=== PATIENT | male | born 1975 | race Caucasian/White ===

== ENCOUNTER 2023-07-01 11:07 | Outpatient (AMB) | payer OTHER, SELFPAY ==
--- NOTE | 2023-07-01 11:13 | MHC.OFFWIV ---
Intake Vital Signs 07/01/23 11:17 Height 5 ft 8 in Weight 198 lb BMI 30.1 BP 116/72 Blood Pressure Location Lt brachial Position Sitting Pulse 88 Pulse Source Pulse Oximeter Pulse Oximetry (%) 97 Oxygen Delivery Method Room Air Intake Visit Reasons: EP Work Clearance Patient Tobacco Use Status: Never used Tobacco Allergies No Known Allergies Allergy (Verified 07/01/23 11:37) Medication List - Last Reconciled 07/01/23 by Leonard Ferrer MD polymyxin B sulf-trimethoprim 10,000 unit- 1 mg/mL mL ophthalmic (eye) Do you need a note to return to daycare/school/sports/work: Yes HPI EP Work Clearance HPI Details 48-year-old male presents to the office for a sick visit. 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 Patient injured his left eye on the weekend and was diagnosed with a corneal abrasion. He needs a note for clearance to go back to work. His symptoms have resolved. He has normal vision. [facility] Social History Patient Tobacco Use Status: Never used Tobacco Physical Exam Vital Signs: Last Vital Signs Pulse 88 07/01/23 11:17 BP 116/72 07/01/23 11:17 Pulse Ox 97 07/01/23 11:17 Oxygen Delivery Method Room Air 07/01/23 11:17 BMI result Body Mass Index 30.1 Eyes General: appearance normal, both eyes and all related structures Eyelids: Yes eyelids normal Conjunctivae: conjunctivae normal Sclerae: sclerae normal Corneas: corneas normal and fluorescein used (No uptake.) Assessment & Plan Assessment & Plan (1) Corneal abrasion, left: Code(s): S05.02XA - Injury of conjunctiva and corneal abrasion without foreign body, left eye, initial encounter Plan: Symptoms have resolved. Patient can return to work with no restrictios.n Coding Level of Care Code New Pt Level 3 (38583) Diagnoses Corneal abrasion, left S05.02XA
[2023-07-01 11:17] VITALS: BP 116/72; PULSE 88; O2SAT 97; BMI 30.1
== END 2023-07-01 12:39 | disposition home or self-care (01) ==
PROVIDERS: PCP Hospitalist; Visit Provider Internal Medicine
DX: S05.02XA Injury of conjunctiva and corneal abrasion without foreign body, left eye, initial encounter (principal)
CPT/HCPCS: 99203

== ENCOUNTER 2023-10-31 10:02 | Outpatient (AMB) | payer OTHER, SELFPAY ==
--- NOTE | 2023-10-31 10:08 | MHC.PC.OV ---
Vital Signs 10/31/23 10:09 Height 5 ft 7 in Weight 189 lb BMI 29.6 BP 114/66 Blood Pressure Location Lt brachial Position Sitting Respiration 13 Pulse 71 Pulse Source Pulse Oximeter Pulse Oximetry (%) 98 Oxygen Delivery Method Room Air Intake Visit Reasons: Re-Establish Care ( Request PE) Intake Note: Patient is here to re-establish care. Patient would like to request lab orders as his fiance has noticed a recent rapid weight loss. Patient would also like to discuss difficulty concentrating. [employer] [employer] Required: No Accompanied by: Self / Same As Patient Allergies No Known Allergies Allergy (Verified 10/31/23 10:16) Tobacco use date assessed: 10/31/23 Dental Screening Dental Screen Date: 10/31/23 Did you have a dental visit in the last 12 months?: No Did you have a dental problem in the last 6 months where you did not have access to dental care?: No Was dental information given to patient?: Yes HPI Re-Establish Care ( Request PE) HPI Details New patient Prior PCP:? [facility] Last office visit/CPE: > 1 yr Acute issue(s): C/o difficulty concentrating PMHx: Asthma, h/o opiod abuse. SurgHx: None FHx: Mom: DM, CHF. Dad: Muscular Dystropy, Lymp CA. SocHx: Smoker down to 1.5 ppw. . EtOH Rarely . MJ No drugs currently PFSH Medical History (Updated 10/31/23 @ 11:21 by Baudilio Krishnamurthy) History of drug abuse Surgical History (Updated 10/31/23 @ 10:27 by Lorna Gonzalez CMA) No pertinent past surgical history Family History (Updated 10/31/23 @ 10:31 by Lorna Gonzalez CMA) Mother Hypertension Diabetes Father Cancer Brother Cancer Other Drug abuse and dependence Social History (Updated 10/31/23 @ 10:22 by Lorna Gonzalez CMA) Household Members: Spouse and Children Housing: House 75 years or older and lives alone: No Alcohol intake: never Patient Tobacco Use Status: Current everyday Tobacco user Cigarette Packs Per Day: 0.5 Cigarettes Per Day: 10 e-Cigarette/Vaping Use: Currently Using Frequency of e-Cigarette/Vaping Use: Marijuana Use of substances other than those prescribed or required for medical reasons: Yes Substance Use Type: Marijuana Have you been hit, kicked, punched, or otherwise hurt by someone within the past year? If so, by whom?: No Do you feel safe in your current relationship?: Yes Is there a partner from a previous relationship who is making you feel unsafe now?: No Are you made to feel afraid or neglected: No service: No Current occupational status: employed Current occupation: [employer] Current occupational exposures/hazards: No Sexual orientation: Unable to collect Gender identity: Unable to collect Cognitive needs: No Hearing needs: No Vision needs: No Questionnaire PHQ-9 Over the last 2 weeks, how often have you been bothered by any of the following problems? 1. Little interest or pleasure in doing things: not at all 2. Feeling down, depressed, or hopeless: not at all 3. Trouble falling or staying asleep, or sleeping too much: nearly every day 4. Feeling tired or having little energy: not at all 5. Poor appetite or overeating: not at all 6. Feeling bad about yourself - or that you are a failure or have let yourself or your family down: not at all 7. Trouble concentrating on things, such as reading the newspaper or watching television: nearly every day 8. Moving or speaking so slowly that other people could have noticed. Or the opposite - being so fidgety or restless that you have been moving around a lot more than usual: not at all 9. Thoughts that you would be better off or of hurting yourself in some way: not at all Total score: 6 Depression Screening Interpretation: Positive Depression Screening Done: Yes 64242 - PHQ-9 Billing: Yes Source: Developed by Drs. Leoncio Suárez, Jenna Hines, Seb España and colleagues, with an educational karla from [employer]. Thrive Questionnaire Date Thrive assessed: 10/31/23 I am a: Patient What is your living situation today?: I have a steady place to live Within the past 12 months, did the food you bought not last and you didn't have the money to get more?: Never true Within the past 12 months, did you worry whether your food would run out before you got money to buy more?: Never true Do you have trouble paying for medicines?: No Do you have trouble getting transportation to medical appointments?: No Do you have trouble paying your heating and electricity bill?: No Do you have trouble taking care of your child, family member or friend?: No Do you have trouble with day-to-day activities such as bathing, preparing meals, shopping, managing finances, etc.?: No Are you currently unemployed and looking for a job?: No Are you interested in more education?: No Please select the resources that you would like help with: None Currently or been in a relationship where the following occur: no concerns reported AUDIT C Alcohol Use Questionnaire (AUDIT-C) 1. How often do you have a drink containing alcohol?: Never 3. How often do you have six or more drinks on one occasion?: Never Total Score: 0 CORDELL-7 AMB Questionnaire CORDELL-7 Date CORDELL - 7 assessed: 10/31/23 Feeling nervous, anxious, or on edge: 0 = Not at all Not being able to stop or control worryin = Not at all Worrying too much about different things: 1 = Several days Trouble relaxin = Several days Being so restless that it is hard to sit still: 3 = Nearly every day Becoming easily annoyed or irritable: 1 = Several days Feeling afraid as if something awful might happen: 0 = Not at all Total CORDELL-7 score (0-4 normal; 5-9 mild; 10-14 moderate; 15-21 severe): 6 Source: Developed by Drs. Leoncio Suárez, Jenna Hines, Seb España and colleagues, with an educational karla from [employer]. CORDELL-7 Assessment Billing CORDELL-7 Assessment Tool: CORDELL-7 Assessment 67280 Review of Systems Const Denies chills, Denies fatigue, Denies fever(s), Denies headache(s) and Denies weakness ENT Denies dizziness and Denies headache(s) Card Denies chest pain, Denies lightheadedness, Denies dyspnea and Denies other (Palpitations) Resp Denies cough, Denies dyspnea, Denies wheezing and Denies other ( shortness of breath) Musc Denies numbness and Denies tingling Neuro Denies dizziness, Denies headache(s), Denies numbness, Denies tingling, Denies paresthesias and Denies weakness Psych Denies anxiety and Denies depression Endo Denies fatigue Aller/Immun Denies wheezing Physical exam (Primary Care) Vital Signs: Last Vital Signs Pulse 71 10/31/23 10:09 Resp 13 10/31/23 10:09 BP 114/66 10/31/23 10:09 Pulse Ox 98 10/31/23 10:09 Oxygen Delivery Method Room Air 10/31/23 10:09 BMI result Body Mass Index 29.6 Tobacco/Smoking Status: Tobacco use Status Tobacco use date assessed 10/31/23 10/31/23 10:20 Patient Tobacco Use Status Current everyday Tobacco 10/31/23 10:22 e-Cigarette/Vaping Use Currently Using 10/31/23 10:22 PHQ-9: PHQ-9 Score PHQ-9: Total score 6 10/31/23 10:56 Depression Screening Interpretation: Positive Thrive Assessment: Date of Thrive Assessment Date Thrive assessed 10/31/23 10/31/23 10:25 Currently or been in a relationship where the following occur: no concerns reported Const General: no acute distress and well developed Nutritional Appearance: well nourished Orientation/consciousness: patient oriented x3 HENMT Head: Yes normocephalic and Yes atraumatic Eyes General: appearance normal, both eyes and all related structures Pupils: Equal, round and reactive pupils present EOM: EOMs intact bilaterally Resp Effort & Inspection: normal respiratory effort Auscultation: clear to auscultation bilaterally Cardio Rate: regular rate Rhythm: regular rhythm Heart sounds: S1 normal heart sound present, S2 normal heart sound present, no gallops, no murmurs and no rubs Neuro General: patient oriented x3 and gait normal Cranial nerves: Yes Equal, round and reactive pupils present Psych Affect: normal affect Assessment and Plan Assessment & Plan (1) Difficulty concentrating: Code(s): R41.840 - Attention and concentration deficit Plan: Patient?states?that?he?had?a?distant?history?of?diagnosis?of?ADHD?as?a?child. Will?refer?him?to?neuropsych?for?evaluation Briefly?discussed?bupropion?as?a?medication?that?could?help?with?concentration (2) Smoker: Code(s): F17.200 - Nicotine dependence, unspecified, uncomplicated Plan: Patient?is?actively?working?on?weaning?down?and?using?nicotine?gum Encouraged?him?to?keep?working?towards?cessation (3) Asthma: Code(s): J45.909 - Unspecified asthma, uncomplicated Plan: As?above,?work?towards?cessation?of?smoking Also?briefly?discussed?bupropion?and?patient?will?think?about Will?give?him?an?albuterol?inhaler?p.r.n. (4) Weight loss: Code(s): R63.4 - Abnormal weight loss Plan: Patient?has?had?a?drastic?change?in?his?lifestyle/work Will?check?labs?but?this?is?likely?normal?weight?loss (5) Laboratory exam ordered as part of routine general medical examination: Code(s): Z00.00 - Encounter for general adult medical examination without abnormal findings Plan: Check?lab Orders: Orders Comprehensive [place]. Panel Fast Today Z00.00 - Encounter for general adult medical examination without abnormal findings Lipid Panel Today Z00.00 - Encounter for general adult medical examination without abnormal findings TSH reflex Free T4 Today Z00.00 - Encounter for general adult medical examination without abnormal findings UA and rflx microscopic Today Z00.00 - Encounter for general adult medical examination without abnormal findings Microalbumin, Random (w Creat) Today I10 - Essential (primary) hypertension Prostate Specific Antigen Scr Today Z12.5 - Encounter for screening for malignant neoplasm of prostate Complete Blood Count Auto Diff Today Z00.00 - Encounter for general adult medical examination without abnormal findings Referrals Neuropsychiatry Referral R41.840 - Attention and concentration deficit Medications: New albuterol sulfate 90 mcg/actuation (ProAir HFA) 2 puffs inhalation Q4-6H PRN 8.5 grams 0RF shortness of breath or wheezing 30 days Coding Level of Care Code New Pt Level 3 (18095) Diagnoses Difficulty concentrating R41.840 Smoker F17.200 Asthma J45.909 Weight loss R63.4 Laboratory exam ordered as part of routine general medical examination Z00.00 Additional Codes CORDELL-7 Assessment Billing - CORDELL-7 Assessment Tool: CORDELL-7 Assessment 33876 ([id number])
[2023-10-31 10:09] VITALS: BP 114/66; PULSE 71; RESP 13; O2SAT 98; BMI 29.6
== END 2023-10-31 11:30 | disposition home or self-care (01) ==
PROVIDERS: PCP Hospitalist; Visit Provider Family Medicine
DX: R41.840 Attention and concentration deficit (principal); F17.210 Nicotine dependence, cigarettes, uncomplicated; J45.909 Unspecified asthma, uncomplicated; R63.4 Abnormal weight loss
CPT/HCPCS: 99213

== ENCOUNTER 2024-02-09 10:17 | Outpatient (AMB) | payer OTHER, SELFPAY ==
[2024-02-09 11:01] VITALS: BP 120/80; PULSE 64; O2SAT 99; BMI 29.0
--- NOTE | 2024-02-09 11:01 | A.OFFPC_ITS ---
Vital Signs 02/09/24 11:01 Height 5 ft 7 in Weight 185 lb 6 oz BMI 29.0 BP 120/80 Blood Pressure Location Lt brachial Position Sitting Pulse 64 Pulse Source Pulse Oximeter Pulse Oximetry (%) 99 Oxygen Delivery Method Room Air Intake Visit Reasons: CPE with f/u labs and health maint. Intake Note: Patient is here for physical today. Allergies No Known Allergies Allergy (Verified 02/09/24 11:02) Tobacco use date assessed: 02/09/24 Dental Screening Dental Screen Date: 02/09/24 Did you have a dental visit in the last 12 months?: No Did you have a dental problem in the last 6 months where you did not have access to dental care?: No Was dental information given to patient?: Patient declined HPI CPE with f/u labs and health maint. HPI Details 48 y/o male presents for a CPE with f/u labs and health maintenance. No recent labs to review. Had complaints of difficulty concentrating and referred to neuropsychiatry. Pt notes he tries to continue to quit smoking but this has been difficult due to stress from work. [facility] Medical History History of drug abuse Surgical History No pertinent past surgical history Family History Mother Hypertension Diabetes Father Cancer Brother Cancer Other Drug abuse and dependence Social History Household Members: Spouse and Children Housing: House 75 years or older and lives alone: No Alcohol intake: never Patient Tobacco Use Status: Current everyday Tobacco user Cigarette Packs Per Day: 0.5 Cigarettes Per Day: 10 e-Cigarette/Vaping Use: Currently Using Substance Use Type: Marijuana service: No Current occupational status: employed Current occupation: [employer] Current occupational exposures/hazards: No Sexual orientation: Unable to collect Gender identity: Unable to collect Cognitive needs: No Hearing needs: No Vision needs: No Questionnaire PHQ-9 Over the last 2 weeks, how often have you been bothered by any of the following problems? 1. Little interest or pleasure in doing things: not at all 2. Feeling down, depressed, or hopeless: not at all 3. Trouble falling or staying asleep, or sleeping too much: not at all 4. Feeling tired or having little energy: not at all 5. Poor appetite or overeating: not at all 6. Feeling bad about yourself - or that you are a failure or have let yourself or your family down: not at all 7. Trouble concentrating on things, such as reading the newspaper or watching television: not at all 8. Moving or speaking so slowly that other people could have noticed. Or the opposite - being so fidgety or restless that you have been moving around a lot more than usual: not at all 9. Thoughts that you would be better off or of hurting yourself in some way: not at all Total score: 0 Depression Screening Interpretation: Negative Depression Screening Done: Yes 22263 - PHQ-9 Billing: Yes Source: Developed by Drs. Leoncio Suárez, Jenna Hines, Seb España and colleagues, with an educational karla from [employer]. Thrive Questionnaire Date Thrive assessed: 02/09/24 I am a: Patient What is your living situation today?: I have a steady place to live Within the past 12 months, did the food you bought not last and you didn't have the money to get more?: Never true Within the past 12 months, did you worry whether your food would run out before you got money to buy more?: Never true Do you have trouble paying for medicines?: No Do you have trouble getting transportation to medical appointments?: No Do you have trouble paying your heating and electricity bill?: No Do you have trouble taking care of your child, family member or friend?: No Do you have trouble with day-to-day activities such as bathing, preparing meals, shopping, managing finances, etc.?: No Are you currently unemployed and looking for a job?: No Are you interested in more education?: No THRIVE Score: 0 AUDIT C Alcohol Use Questionnaire (AUDIT-C) 1. How often do you have a drink containing alcohol?: Monthly or less 2. How many drinks containing alcohol do you have on a typical day when you are drinking?: 1 or 2 3. How often do you have six or more drinks on one occasion?: Never Total Score: 1 CORDELL-7 AMB Questionnaire CORDELL-7 Date CORDELL - 7 assessed: 02/09/24 Feeling nervous, anxious, or on edge: 0 = Not at all Not being able to stop or control worryin = Not at all Worrying too much about different things: 0 = Not at all Trouble relaxin = Not at all Being so restless that it is hard to sit still: 0 = Not at all Becoming easily annoyed or irritable: 0 = Not at all Feeling afraid as if something awful might happen: 0 = Not at all Total CORDELL-7 score (0-4 normal; 5-9 mild; 10-14 moderate; 15-21 severe): 0 Source: Developed by Drs. Leoncio Suárez, Jenna Hines, Seb España and colleagues, with an educational karla from [employer]. CORDELL-7 Assessment Billing CORDELL-7 Assessment Tool: CORDELL-7 Assessment 60112 Review of Systems Const Denies chills, Denies fatigue, Denies fever(s), Denies headache(s) and Denies weakness Eyes Denies change in vision ENT Denies dizziness, Denies headache(s), Denies hearing loss, Denies nasal congestion, Denies sinus pain, Denies sinus pressure and Denies sore throat Card Denies chest pain, Denies lightheadedness, Denies dyspnea and Denies other (palpitations) Resp Denies cough, Denies dyspnea and Denies wheezing GI Denies abdominal pain, Denies melena, Denies hematochezia, Denies change in bowel habits, Denies dyspepsia and Denies nausea Denies hematuria and Denies dysuria Musc Denies abnormal gait, Denies myalgias, Denies arthralgias, Denies numbness and Denies tingling Skin/Breast Denies rash, Denies unusual bruising and Denies wounds Neuro Denies abnormal gait, Denies dizziness, Denies headache(s), Denies memory loss, Denies numbness, Denies Sensory deficit (Neuro), Denies tingling and Denies weakness Psych Denies anxiety, Denies depression and Denies memory loss Endo Denies cold intolerance, Denies fatigue, Denies heat intolerance, Denies polydipsia and Denies polyuria Abhijeet/Lymph Denies easy bleeding and Denies easy bruising Aller/Immun Denies wheezing Physical exam (Primary Care) Vital Signs: Last Vital Signs Pulse 64 02/09/24 11:01 BP 120/80 02/09/24 11:01 Pulse Ox 99 02/09/24 11:01 Oxygen Delivery Method Room Air 02/09/24 11:01 BMI result Body Mass Index 29.0 Tobacco/Smoking Status: Tobacco use Status Tobacco use date assessed 02/09/24 02/09/24 11:08 Patient Tobacco Use Status Current everyday Tobacco 02/09/24 11:08 e-Cigarette/Vaping Use Currently Using 02/09/24 11:08 PHQ-9: PHQ-9 Score PHQ-9: Total score 0 02/09/24 11:51 Depression Screening Interpretation: Negative Thrive Assessment: Date of Thrive Assessment Date Thrive assessed 02/09/24 02/09/24 11:08 Const General: no acute distress, well developed, alert and awake Nutritional Appearance: well nourished Orientation/consciousness: patient oriented x3 HENMT Head: Yes normocephalic and Yes atraumatic Ears: hearing grossly normal bilaterally and TM's normal bilaterally General nose exam: Normal external nose present and Normal nares present Mouth: Normal oral and palatal mucosa present and moist mucous membranes Teeth and gingiva: dentition normal Throat: Yes posterior oropharynx normal Eyes General: appearance normal, both eyes and all related structures Pupils: Equal, round and reactive pupils present and Pupil accommodation reflex normal EOM: EOMs intact bilaterally Neck Neck: Yes normal visual inspection, Yes no lymphadenopathy and Yes trachea midline Thyroid: Thyroid normal Carotids: no bruits Lymphatic: no lymphadenopathy noted Chest Chest palpation & inspection: normal inspection of the chest Resp Effort & Inspection: normal respiratory effort Auscultation: clear to auscultation bilaterally Cardio Rate: regular rate Rhythm: regular rhythm Heart sounds: S1 normal heart sound present, S2 normal heart sound present, no gallops, no murmurs and no rubs Bruits: no abdominal aortic bruits and no carotid bruits GI Palpation (GI): No Abdominal aortic bruit present, Soft to palpation, nontender, No hepatosplenomegaly present and No Rebound tenderness present Auscultation: normal bowel sounds General: Yes no CVA tenderness Back/Spine/Pelvis Back: no CVA tenderness Cervical Spine: cervical ROM normal and No Cervical spine tenderness Thoracic/Lumbar Spine: thoraco-lumbar ROM normal, No pain with thoraco-lumbar ROM, No thoracic spinal tenderness and No lumbar spinal tenderness Skin Lesions: no lesions Rashes: no rashes Trauma: no lacerations or abrasions Wounds: no wounds Nails: normal Neuro General: patient oriented x3 Cranial nerves: Yes Equal, round and reactive pupils present Cognition (Neuro): normal cognition Gait exam (Neuro): Normal gait present Motor exam (neuro): 5/5 motor strength present throughout Sensory Exam: No Sensory deficit (Neuro) Deep tendon reflexes (DTR's): Right patellar reflex intensity grade: 2+ and Left patellar reflex intensity grade: 2+ Extrem Other: Foreign body/lump at 3rd MCP joint, R hand General: Yes normal to inspection and No edema Psych Appearance: grossly normal Affect: normal affect Attitude: cooperative Thought process: Normal thought process present Assessment and Plan Assessment & Plan (1) Adult general medical exam: Code(s): Z00.00 - Encounter for general adult medical examination without abnormal findings Plan: 48-year-old?male?presents?for?complete?physical?exam Exam?today?within?normal?limits EKG: ?Sinus?bradycardia, HR?56?beats?per?minute. ?Otherwise?normal?EKG Encouraged?healthy?diet?and?exercise (2) Difficulty concentrating: Code(s): R41.840 - Attention and concentration deficit Plan: Had?referred?him?to?neuropsych Stable (3) Right hand pain: Code(s): M79.641 - Pain in right hand Plan: Foreign?body/lump?at?3rd?MCP?joint Check?x-ray Will?call?patient?of?action?is?required (4) Forearm tendonitis: Code(s): M77.8 - Other enthesopathies, not elsewhere classified Plan: Left?forearm?tendinitis Relative?rest, ice Can?use?a?forearm?brace He?will?let?me?know?if?not?improved (5) Smoker: Code(s): F17.200 - Nicotine dependence, unspecified, uncomplicated Plan: Trial?bupropion Continue?nicotine?gum (6) Screening for prostate cancer: Code(s): Z12.5 - Encounter for screening for malignant neoplasm of prostate Plan: Check?PSA (7) Screening for colon cancer: Code(s): Z12.11 - Encounter for screening for malignant neoplasm of colon Orders: Orders XR hand RT min 3V Today M79.641 - Pain in right hand AMB EKG-In Office Today Z00.00 - Encounter for general adult medical examination without abnormal findings Referrals Gastroenterology Referral Z12.11 - Encounter for screening for malignant neoplasm of colon Medications: New bupropion HCl 75 mg PO DAILY 30 days 30 tabs 1RF Patient Instructions: Refer?to?Gastroenterology Coding Level of Care Code Est Pt Level 3 (71136) Est Pt Prev Care 40-64y(99208) Diagnoses Adult general medical exam Z00.00 Difficulty concentrating R41.840 Right hand pain M79.641 Forearm tendonitis M77.8 Smoker F17.200 Screening for prostate cancer Z12.5 Screening for colon cancer Z12.11 Additional Codes CORDELL-7 Assessment Billing - CORDELL-7 Assessment Tool: CORDELL-7 Assessment 34666 ([id number])
== END 2024-02-09 12:32 | disposition home or self-care (01) ==
PROVIDERS: PCP Family Medicine; Visit Provider Family Medicine
DX: Z00.00 Encounter for general adult medical examination without abnormal findings (principal); R41.840 Attention and concentration deficit; M79.641 Pain in right hand; M77.8 Other enthesopathies, not elsewhere classified; F17.200 Nicotine dependence, unspecified, uncomplicated; Z12.5 Encounter for screening for malignant neoplasm of prostate; Z12.11 Encounter for screening for malignant neoplasm of colon
CPT/HCPCS: 99213; 99396

== ENCOUNTER 2024-02-09 12:16 | Outpatient (REF) | payer OTHER, SELFPAY ==
[2024-02-09 14:30] LABS: MANUAL DIFF FLAG NO
[2024-02-09 14:39] LABS: Basophils Absolute Auto 0.1 X10*3/uL (0.0-0.2); Basophils Percent Auto 1.2 % (0-2); Eosinophils Absolute Auto 0.1 X10*3/uL (0.0-0.4); Hematocrit 45.4 % (42.0-52.0); Imm Gran Abs Auto 0.02 X10*3/uL (0.00-0.03); Imm Gran Pct Auto 0.4 % (0.0-0.4); Lymphocytes Absolute Auto 2.1 X10*3/uL (1.2-4.9); Lymphocytes Percent Auto 40.4 % (20-40); Mean Corpuscular Hemoglobin 29.8 pg (27.0-33.0); Mean Corpuscular Volume 90.3 fL (80.0-98.0); Mean Platelet Volume 9.8 fL (9.4-12.4); Monocytes Absolute Auto 0.5 X10*3/uL (0.1-1.2); Monocytes Percent Auto 10.2 % (2-11); Neutrophils Absolute Auto 2.4 x10*3/uL (2.0-8.3); Neutrophils Percent Auto 45.8 % (45-73); Platelet Count 269 X10*3/uL (160-400); Red Blood Count 5.03 X10*6/uL (4.60-5.80); Red Cell Distribution Width 12.9 % (11.0-16.0); White Blood Count 5.1 X10*3/uL (4.8-10.8)
[2024-02-09 15:00] LABS: Alanine Aminotransferase 22 U/L (0-40); Albumin Level 3.9 g/dL (3.5-5.0); Alkaline Phosphatase 64 U/L (39-117); Anion Gap 8 (12-20); Aspartate Amino Transferase 19 U/L (5-37); Bilirubin Total 0.4 mg/dL (0.0-1.0); Blood Urea Nitrogen 13 mg/dL (9-16); Calcium 9.2 mg/dL (8.4-10.2); Carbon Dioxide 32 mmol/L (22-29); Chloride 104 mmol/L (96-108); Cholesterol 209 mg/dL (<200); Estimated Glomerular Filt Rate > 60; Glucose Fasting 90 mg/dL (60-99); HDL Cholesterol 45 mg/dL (>40); LDL Cholesterol Calculated 133 mg/dL (<100); Potassium 4.4 mmol/L (3.3-5.1); Sodium 140 mmol/L (135-145); Total Protein 6.8 g/dL (6.5-8.0); Triglycerides 158 mg/dL (<150)
[2024-02-09 15:11] LABS: Prostate Specific Antigen Scr 0.37 ng/mL (<0.05-4.0)
[2024-02-09 15:17] LABS: TSH reflex Free T4 0.86 uIU/mL (0.32-4.0)
[2024-02-09 15:53] LABS: Appearance Urine Clear; Color Urine Yellow; Glucose Urine UA Negative (Negative); Leukocyte Esterase Urine Negative (Negative); Nitrite Urine Negative (Negative); Urine Blood Negative (Negative); Urine Ketones Negative (Negative); Urine Protein Negative (Neg-Trace)
[2024-02-09 16:34] LABS: Creatinine Urine 128.03 mg/dL; Microalbum/Creatinine Ratio Ur 4.6 ug/mg cr (<30)
== END 2024-02-09 12:17 | disposition home or self-care (01) ==
LOC: HO.WFDLDS 12:16
PROVIDERS: Visit Provider Family Medicine
DX: Z00.00 Encounter for general adult medical examination without abnormal findings (principal); Z12.5 Encounter for screening for malignant neoplasm of prostate; I10 Essential (primary) hypertension
CPT/HCPCS: 36415; 80053; 80061; 81003; 82043; 82570; 84153; 84443; 85025

== ENCOUNTER → 2024-03-11 14:28 | Outpatient (AMB) | payer OTHER, SELFPAY ==
--- NOTE | 2024-03-11 14:22 | MHC.PC.OV ---
Intake Visit Reasons: follow up cpe lab Intake Note: Patient share he has no concerns at this time Respiratory Care Assistant Required: No Accompanied by: Self / Same As Patient Allergies No Known Allergies Allergy (Verified 03/11/24 14:23) Tobacco use date assessed: 02/09/24 Dental Screening Dental Screen Date: 02/09/24 HPI follow up cpe lab HPI Details 48 y/o male presents to f/u CPE-labs via telemedicine. Also f/u x-ray for smoking. X-ray has not been done yet. Pt notes he has stopped bupropion 75mg for smoking cessation as it had been upsetting his stomach. Labs were drawn 02/09/24. Reviewed labs with pt. Triglycerides 158. TC 209. LDL 133. HDL 45. PFSH Medical History History of drug abuse Surgical History No pertinent past surgical history Family History Mother Hypertension Diabetes Father Cancer Brother Cancer Other Drug abuse and dependence Social History Household Members: Spouse and Children Housing: House 75 years or older and lives alone: No Alcohol intake: never Patient Tobacco Use Status: Current everyday Tobacco user Cigarette Packs Per Day: 0.5 Cigarettes Per Day: 10 e-Cigarette/Vaping Use: Currently Using Substance Use Type: Marijuana service: No Current occupational status: employed Current occupation: [employer] Current occupational exposures/hazards: No Sexual orientation: Unable to collect Gender identity: Unable to collect Cognitive needs: No Hearing needs: No Vision needs: No Questionnaire Thrive Questionnaire Date Thrive assessed: 02/09/24 CORDELL-7 AMB Questionnaire CORDELL-7 Date CORDELL - 7 assessed: 02/09/24 Source: Developed by Drs. Leoncio Suárez, Jenna Hines, Seb España and colleagues, with an educational karla from [employer]. Physical exam (Primary Care) Tobacco/Smoking Status: Tobacco use Status Tobacco use date assessed 02/09/24 03/11/24 14:22 Patient Tobacco Use Status Current everyday Tobacco 03/11/24 14:22 e-Cigarette/Vaping Use Currently Using 03/11/24 14:22 Thrive Assessment: Date of Thrive Assessment Date Thrive assessed 02/09/24 03/11/24 14:22 Telehealth Telehealth Telehealth Platform: Telephone Location of provider rendering services: practice address Location of patient: address on file Patient Identification confirmed using: Name, : Yes Telehealth method: voice only Patient verbally consented to treatment: Yes Patient verbally consented to billing insurance company: Yes Patient informed of any privacy concerns related to visit: Yes Minutes spent on Phone/Video with Pt.: 9 Assessment and Plan Assessment & Plan (1) Smoker: Code(s): F17.200 - Nicotine dependence, unspecified, uncomplicated Plan: Patient?continues?to?wean?down?on?cigarettes.??He?tried?bupropion?but?it?was?bothering?his?stomach. He?is?using?nicotine?gum?as?well. Advised?that?he?could?try?breaking?the?bupropion?tablets?in?half Encouraged?ongoing?weaning?and?cessation.??We?can?follow-up?at?his?next?visit (2) Hyperlipidemia: Code(s): E78.5 - Hyperlipidemia, unspecified Plan: Mild?hyperlipidemia. Encouraged?a?diet?lower?in?saturated?fats?and?cholesterol.??Encouraged?exercise?and?ongoing?weight?loss. Will?recheck?in?a?few?months (3) Screening for prostate cancer: Code(s): Z12.5 - Encounter for screening for malignant neoplasm of prostate Plan: PSA?was?within?normal?range We?will?continue?annual?screening Orders: Orders Lipid Panel Today E78.5 - Hyperlipidemia, unspecified, Z00.00 - Encounter for general adult medical examination without abnormal findings Comprehensive [place]. Panel Fast Today E78.5 - Hyperlipidemia, unspecified, Z00.00 - Encounter for general adult medical examination without abnormal findings Coding Level of Care Code Tele Est Pt Level 2 (85448) Diagnoses Smoker F17.200 Hyperlipidemia E78.5 Screening for prostate cancer Z12.5
== END ==
LOC: HO.HMGFM 14:28
PROVIDERS: PCP Family Medicine; Visit Provider Family Medicine
DX: E78.5 Hyperlipidemia, unspecified (principal); F17.210 Nicotine dependence, cigarettes, uncomplicated; Z12.5 Encounter for screening for malignant neoplasm of prostate
CPT/HCPCS: 99212